=== PATIENT | male | born 1945 | race Two or more races ===

== ENCOUNTER 2023-09-23 12:17 | Inpatient (IN) | payer MEDICARE, OTHER ==
[~2023-09-23] VITALS: Ht 182.9 cm; Wt 82.6 kg
[~2023-09-23 12:17] MED LIST: CEPH500C PO; METH4PAK PO
[2023-09-23] MEDS ORDERED: SODIUM CHLORIDE 0.9% 500 ML IVB ONE (12:30)
[2023-09-23 13:14] LABS: Basophils # (auto) 0 10 ^3/uL (0-0.2); Basophils % (auto) 0.4 % (0.0-2.0); Eosinophils # (auto) 0 10 ^3/uL (0-0.8); Eosinophils % (auto) 0.1 % (0.0-7.0); Hemoglobin 12.6 g/dL (13.5-17.5); Lymphocytes # (auto) 0.8 10 ^3/uL (0.4-5.4); Mean Corpuscular Hemoglobin 34.3 pg (28.0-32.0); Mean Corpuscular Hgb Conc. 32.4 g/dL (32.0-36.0); Monocytes # (auto) 0.2 10 ^3/uL (0-1.3); Monocytes % (auto) 2.4 % (0.0-12.0); Neutrophils # (auto) 6.5 10 ^3/uL (1.6-8.6); Neutrophils % (auto) 86.1 % (37.0-80.0); Red Blood Cells 3.68 10^6/uL (4.5-5.90); Red Cell Distribution Width 15.4 % (11.8-14.3); White Blood Cell 7.6 10^3/uL (4.4-10.8)
[2023-09-23 13:28] LABS: Alanine Aminotransferase 44 U/L (7-40); Albumin 3.3 g/dL (3.2-4.8); Alkaline Phosphatase 84 U/L (46-116); Aspartate Aminotransferase 45 U/L (13-40); BUN/Creatinine Ratio 8.5 (10.0-20.0); Blood Alcohol < 3.0 mg/dL (<10); Blood Urea Nitrogen 26 mg/dL (9-23); Calcium 8.6 mg/dL (8.7-10.4); Chloride 112 mmol/L (98-107); Glucose 97 mg/dL (74-106); Magnesium 2.4 mg/dL (1.6-2.6); Potassium 4.9 mmol/L (3.5-5.1); Sodium 138 mmol/L (136-145)
[2023-09-23 13:29] LABS: Bilirubin, Total < 0.2 mg/dL (0.2-1.0); Total Protein 6.1 g/dL (5.7-8.2)
[2023-09-23 13:39] LABS: Carbon Dioxide < 10 mmol/L (20-30)
[2023-09-23 14:18] LABS: Urine Bacteria NONE SEEN /hpf (None Seen); Urine Blood 1+ /uL (Negative); Urine Clarity Clear (Clear); Urine Color Yellow (Yellow); Urine Hyaline Cast FEW /lpf (0 - 2); Urine Protein, UAD 1+ (Negative); Urine Specific Gravity 1.017 (1.001-1.035); Urine Urobilinogen Normal (Negative); Urine WBC 2 /hpf (0 - 3)
[2023-09-23 14:27] LABS: Base Excess -12.3 mmol/L (-2.0-2.0)
[2023-09-23] MEDS ORDERED: NITROGLYCERIN 0.4 MG SL TAB SL PRN (16:00)
[2023-09-23] MEDS ORDERED: MORPHINE SULFATE INJ 2 MG/ml SYRG IV PRN (16:00)
[2023-09-23] MEDS ORDERED: CEFEPIME 1GM/ 50ML 50 ML IV ONE (16:15)
[2023-09-23] MEDS ORDERED: SODIUM BICARBONATE 50ML VIAL 50 ML in D5W 5% 1,000 ML IV ONE (16:15)
[2023-09-23] MEDS ORDERED: VANCOMYCIN PER PHARMACY 0 MG IV SCH (16:15)
[2023-09-23] MEDS ORDERED: THIAMINE 100mg/ml INJ (200mg/2ml VIAL) IM ONE (16:30)
[2023-09-23] MEDS ORDERED: LACTATED RINGER'S 1,000 ML IV SCH (16:30)
[2023-09-23 17:00] LABS: Partial Thromboplastin Time 27.5 SEC (24.5-34.5); Prothrombin Time 10.5 sec (9.3-11.8)
[2023-09-23 17:11] LABS: % Iron Saturation 26.1 % (20-55)
[2023-09-23] MEDS ORDERED: VANCOMYCIN 1GM/200ML 200 ML IV ONE (17:15)
[2023-09-23 17:40] LABS: Folate (Folic Acid) 11.35 ng/mL (>5.38)
[2023-09-23 17:41] LABS: Ferritin 375.9 ng/mL (22-322); Thyroid Stimulating Hormone 1.49 uIU/mL (0.358-3.74)
[2023-09-23 17:57] LABS: Base Excess -12.7 mmol/L (-2.0-2.0)
[2023-09-23 18:16] LABS: Creatinine, Urine 132.73 mg/dL (30.0-125.0)
[2023-09-23] MEDS ORDERED: PANTOPRAZOLE 40 MG TAB PO ONE (18:45)
[2023-09-23] MEDS ORDERED: ACETAMINOPHEN 500 MG TAB PO PRN (18:45)
[2023-09-23] MEDS ORDERED: traMADol HCL 50 MG TAB PO PRN (18:45)
[2023-09-23 18:50] LABS: Rapid Influenza A Negative (Negative)
[2023-09-23 18:54] LABS: COVID19 ANTIGEN SOFIA FIA NEGATIVE (NEGATIVE)
[2023-09-23 18:57] LABS: Rapid Influenza B Positive (Negative)
[2023-09-23 19:30] VITALS: PULSE 89; RESP 20; O2SAT 99
[2023-09-23] MEDS ORDERED: OSELTAMIVIR 30 MG CAP PO ONE (19:30)
[2023-09-23] MEDS ORDERED: TETANUS IMMUNE GLOBULIN 250 UNIT/ML SYRG IM ONE (19:30)
[2023-09-23] MEDS ORDERED: TETANUS-DIPTH-ACEL PERTUSSIS 0.5ML SYR Tdap IM ONE (19:30)
[2023-09-23 20:21] LABS: Eosinophils # (auto) 0 10 ^3/uL (0-0.8); Red Cell Distribution Width 15.6 % (11.8-14.3)
[2023-09-23 20:23] LABS: Basophils # (auto) 0 10 ^3/uL (0-0.2); Basophils % (auto) 0.4 % (0.0-2.0); Hematocrit 36.5 % (41.0-53.0); Hemoglobin 11.4 g/dL (13.5-17.5); Lymphocytes % (auto) 11.7 % (10.0-50.0); Mean Corpuscular Hemoglobin 33.8 pg (28.0-32.0); Mean Corpuscular Hgb Conc. 31.2 g/dL (32.0-36.0); Mean Corpuscular Volume 108.2 fL (80.0-100.0); Monocytes # (auto) 0.2 10 ^3/uL (0-1.3); Monocytes % (auto) 2.9 % (0.0-12.0); Nucleated Red Blood Cells % 0.2 %; Red Blood Cells 3.37 10^6/uL (4.5-5.90); White Blood Cell 8.2 10^3/uL (4.4-10.8)
[2023-09-23 20:28] LABS: Urine Bacteria FEW /hpf (None Seen)
[2023-09-23] MEDS ORDERED: SILVER SULFADIAZINE 1 % TOPICAL CREAM 50GM TOP SCH (22:00)
[2023-09-24 03:30] VITALS: PULSE 92; RESP 18; O2SAT 98
[2023-09-24] MEDS ORDERED: CEFEPIME 1GM/ 50ML 50 ML IV SCH (06:00)
[2023-09-24 07:54] LABS: Basophils # (auto) 0 10 ^3/uL (0-0.2); Basophils % (auto) 0.1 % (0.0-2.0); Eosinophils # (auto) 0.1 10 ^3/uL (0-0.8); Eosinophils % (auto) 0.6 % (0.0-7.0); Hematocrit 32.1 % (41.0-53.0); Hemoglobin 10.8 g/dL (13.5-17.5); Lymphocytes # (auto) 1.3 10 ^3/uL (0.4-5.4); Lymphocytes % (auto) 13.8 % (10.0-50.0); Mean Corpuscular Hgb Conc. 33.6 g/dL (32.0-36.0); Mean Corpuscular Volume 101.2 fL (80.0-100.0); Monocytes # (auto) 0.7 10 ^3/uL (0-1.3); Monocytes % (auto) 7.8 % (0.0-12.0); Neutrophils # (auto) 7.2 10 ^3/uL (1.6-8.6); Neutrophils % (auto) 77.7 % (37.0-80.0); Nucleated Red Blood Cells % 0.1 %; Red Blood Cells 3.17 10^6/uL (4.5-5.90); Red Cell Distribution Width 14.3 % (11.8-14.3); White Blood Cell 9.2 10^3/uL (4.4-10.8)
[2023-09-24 08:15] LABS: Alanine Aminotransferase 36 U/L (7-40); Albumin 2.8 g/dL (3.2-4.8); Alkaline Phosphatase 71 U/L (46-116); Anion Gap 18 (5-15); Aspartate Aminotransferase 36 U/L (13-40); BUN/Creatinine Ratio 11.3 (10.0-20.0); Blood Urea Nitrogen 35 mg/dL (9-23); Calcium 8.2 mg/dL (8.5-10.1); Carbon Dioxide 11 mmol/L (20-30); Chloride 117 mmol/L (98-107); Glucose 65 mg/dL (74-106); Potassium 3.9 mmol/L (3.5-5.1)
[2023-09-24 08:16] LABS: Bilirubin, Total 0.2 mg/dL (0.2-1.0)
[2023-09-24 08:18] LABS: Sodium 146 mmol/L (136-145)
[2023-09-24 09:11] LABS: Magnesium 2.1 mg/dL (1.6-2.6)
[2023-09-24] MEDS ORDERED: LACTATED RINGER'S 1,000 ML IV SCH (09:45)
[2023-09-24 09:53] LABS: Base Excess -10.2 mmol/L (-2.0-2.0)
[2023-09-24] MEDS: ENOXAPARIN SOD 40 MG/0.4 ML SYRINGE SC SCH (10:00)
[2023-09-24] MEDS ORDERED: PANTOPRAZOLE 40 MG/10 ML VIAL INJ IV SCH (10:00)
[2023-09-24] MEDS: PANTOPRAZOLE 40 MG TAB PO SCH (10:00)
[2023-09-24] MEDS: THIAMINE 100mg/ml INJ (200mg/2ml VIAL) IV SCH (10:00)
[2023-09-24] MEDS: OSELTAMIVIR 30 MG CAP PO SCH (10:00)
[2023-09-24] MEDS ORDERED: VANCOMYCIN 500 MG in D5W 5% 100 ML IV ONE (12:00)
[2023-09-24] MEDS: CALCIUM ACETATE 667 MG CAP PO SCH (14:14)
[2023-09-24] MEDS ORDERED: SODIUM BICARBONATE 50ML VIAL 75 ML in D5W 5% 1,000 ML IV SCH (15:15)
[2023-09-24] MEDS: LACTATED RINGER'S 1,000 ML IV SCH (16:30)
[2023-09-24 19:40] VITALS: PULSE 89; RESP 19; O2SAT 98
[2023-09-24] MEDS: CEFEPIME 1GM/ 50ML 50 ML IV SCH (22:11)
[2023-09-25] MEDS: LACTATED RINGER'S 1,000 ML IV SCH (02:56)
[2023-09-25 04:18] LABS: Basophils # (auto) 0 10 ^3/uL (0-0.2); Eosinophils # (auto) 0.6 10 ^3/uL (0-0.8); Hematocrit 32.6 % (41.0-53.0)
[2023-09-25 04:21] LABS: Basophils % (auto) 0.2 % (0.0-2.0); Eosinophils % (auto) 6.1 % (0.0-7.0); Hemoglobin 10.9 g/dL (13.5-17.5); Lymphocytes % (auto) 10.4 % (10.0-50.0); Mean Corpuscular Hemoglobin 34.2 pg (28.0-32.0); Mean Corpuscular Hgb Conc. 33.5 g/dL (32.0-36.0); Monocytes # (auto) 0.7 10 ^3/uL (0-1.3); Monocytes % (auto) 6.6 % (0.0-12.0); Neutrophils # (auto) 7.8 10 ^3/uL (1.6-8.6); Neutrophils % (auto) 76.7 % (37.0-80.0); Nucleated Red Blood Cells % 0.2 %; Red Cell Distribution Width 14.5 % (11.8-14.3); White Blood Cell 10.1 10^3/uL (4.4-10.8)
[2023-09-25 04:40] LABS: Alanine Aminotransferase 39 U/L (7-40); Albumin 2.4 g/dL (3.2-4.8); Alkaline Phosphatase 70 U/L (46-116); Anion Gap 16 (5-15); Aspartate Aminotransferase 61 U/L (13-40); BUN/Creatinine Ratio 16.9 (10.0-20.0); Calcium 7.5 mg/dL (8.7-10.4); Carbon Dioxide 14 mmol/L (20-30); Chloride 120 mmol/L (98-107); Magnesium 1.8 mg/dL (1.6-2.6); Phosphorus 4.5 mg/dL (2.4-5.1); Potassium 3.4 mmol/L (3.5-5.1); Sodium 150 mmol/L (136-145)
[2023-09-25 04:41] LABS: Bilirubin, Total 0.2 mg/dL (0.2-1.0); Total Protein 4.3 g/dL (5.7-8.2)
[2023-09-25 04:42] LABS: Blood Urea Nitrogen 48 mg/dL (9-23)
[2023-09-25 04:44] LABS: Glucose 35 mg/dL (74-106)
[2023-09-25] MEDS ORDERED: DEXTROSE 50% SYRINGE 50 ML IV ONE (04:46)
[2023-09-25] MEDS ORDERED: DEXTROSE (50%) 50ML SYRG IV ONE (05:00)
[2023-09-25] MEDS ORDERED: D5W/SOD CHL 0.45% 1,000 ML IV ONE ×2 (05:15→11:15)
[2023-09-25] MEDS: MORPHINE SULFATE INJ 2 MG/ml SYRG IV PRN (05:25)
[2023-09-25] MEDS: ACCU-CHEK COMFORT CURVE STRIP VI SCH ×3 (06:07→18:05)
[2023-09-25] MEDS ORDERED: POTASSIUM EFFERVESENT TAB 25 MEQ PO ONE (07:45)
[2023-09-25] MEDS: CALCIUM ACETATE 667 MG CAP PO SCH ×3 (08:00→18:00)
[2023-09-25] MEDS ORDERED: POTASSIUM CHL 20MEQ/100ML 100 ML IV ONE (08:15)
[2023-09-25] MEDS: THIAMINE 100mg/ml INJ (200mg/2ml VIAL) IV SCH (09:57)
[2023-09-25] MEDS: CEFEPIME 1GM/ 50ML 50 ML IV SCH (09:57)
[2023-09-25] MEDS: ENOXAPARIN SOD 40 MG/0.4 ML SYRINGE SC SCH (09:57)
[2023-09-25] MEDS: OSELTAMIVIR 30 MG CAP PO SCH (10:00)
[2023-09-25] MEDS: PANTOPRAZOLE 40 MG TAB PO SCH (10:00)
[2023-09-25] MEDS ORDERED: VANCOMYCIN 750mg/250ml 250 ML IV ONE (14:00)
[2023-09-25] MEDS: ENSURE CLEAR Apple 8oz Carton PO SCH ×2 (18:00→21:45)
[2023-09-25 18:37] LABS: Chloride 120 mmol/L (98-107); Potassium 3.3 mmol/L (3.5-5.1); Sodium 148 mmol/L (136-145)
[2023-09-25 18:38] LABS: Anion Gap 12 (5-15); Carbon Dioxide 16 mmol/L (20-30)
[2023-09-25 18:39] LABS: Calcium 7.6 mg/dL (8.7-10.4)
[2023-09-25 18:44] LABS: BUN/Creatinine Ratio 10.5 (10.0-20.0); Glucose 78 mg/dL (74-106)
[2023-09-25 18:46] LABS: Blood Urea Nitrogen 26 mg/dL (9-23)
[2023-09-25 19:20] VITALS: PULSE 82; RESP 16; O2SAT 94
[2023-09-26] MEDS: ACCU-CHEK COMFORT CURVE STRIP VI SCH ×6 (00:23→20:12)
[2023-09-26] MEDS ORDERED: D5W/SOD CHL 0.45% 1,000 ML IV ONE (00:30)
[2023-09-26] MEDS ORDERED: diphenhdrAMINE HCL 50 MG/1 ML VL IV ONE (00:30)
[2023-09-26] MEDS: MORPHINE SULFATE INJ 2 MG/ml SYRG IV PRN (01:05)
[2023-09-26] MEDS ORDERED: POTASSIUM EFFERVESENT TAB 25 MEQ GT ONE (04:45)
[2023-09-26] MEDS ORDERED: POTASSIUM CHLORIDE 40 MEQ in SOD CHL 0.45% 1,000 ML IV SCH (06:00)
[2023-09-26 06:26] LABS: Basophils # (auto) 0 10 ^3/uL (0-0.2); Basophils % (auto) 0.1 % (0.0-2.0); Eosinophils # (auto) 1.7 10 ^3/uL (0-0.8); Eosinophils % (auto) 13.4 % (0.0-7.0); Hematocrit 32.6 % (41.0-53.0); Hemoglobin 10.7 g/dL (13.5-17.5); Lymphocytes # (auto) 1.4 10 ^3/uL (0.4-5.4); Lymphocytes % (auto) 11.1 % (10.0-50.0); Mean Corpuscular Hemoglobin 33.2 pg (28.0-32.0); Mean Corpuscular Volume 100.8 fL (80.0-100.0); Monocytes # (auto) 0.8 10 ^3/uL (0-1.3); Monocytes % (auto) 6.3 % (0.0-12.0); Neutrophils # (auto) 8.6 10 ^3/uL (1.6-8.6); Neutrophils % (auto) 69.1 % (37.0-80.0); Nucleated Red Blood Cells % 0.1 %; Red Blood Cells 3.23 10^6/uL (4.5-5.90); Red Cell Distribution Width 14.4 % (11.8-14.3); White Blood Cell 12.5 10^3/uL (4.4-10.8)
[2023-09-26 06:46] LABS: Alanine Aminotransferase 35 U/L (7-40); Albumin 2.5 g/dL (3.2-4.8); Alkaline Phosphatase 68 U/L (46-116); Anion Gap 12 (5-15); Aspartate Aminotransferase 48 U/L (13-40); BUN/Creatinine Ratio 13.9 (10.0-20.0); Blood Urea Nitrogen 32 mg/dL (9-23); Calcium 7.5 mg/dL (8.7-10.4); Carbon Dioxide 18 mmol/L (20-30); Chloride 120 mmol/L (98-107); Creatine Kinase IFCC 524 U/L (46-171); Glucose 73 mg/dL (74-106); Magnesium 1.6 mg/dL (1.6-2.6); Phosphorus 3.4 mg/dL (2.4-5.1); Potassium 3.2 mmol/L (3.5-5.1); Sodium 150 mmol/L (136-145)
[2023-09-26 06:47] LABS: Bilirubin, Total 0.3 mg/dL (0.2-1.0); Total Protein 4.7 g/dL (5.7-8.2)
[2023-09-26 07:23] LABS: CRP High Sensitivity 17.22 mg/dL (<1.0)
[2023-09-26] MEDS ORDERED: D5W 5% 1,000 ML IV SCH ×2 (07:45→11:30)
[2023-09-26 08:00] VITALS: PULSE 83; RESP 19; O2SAT 97
[2023-09-26] MEDS ORDERED: VANCOMYCIN 1GM/200ML 200 ML IV SCH (09:00)
[2023-09-26] MEDS: CALCIUM ACETATE 667 MG CAP PO SCH ×3 (09:07→19:43)
[2023-09-26] MEDS: ENSURE CLEAR Apple 8oz Carton PO SCH ×4 (09:07→22:00)
[2023-09-26] MEDS: POTASSIUM CHLORIDE 40 MEQ in D5W 5% 1,000 ML IV SCH (09:22)
[2023-09-26] MEDS: MAGNESIUM SULFATE 1GM/100ML 100 ML IV SCH ×2 (09:23→10:27)
[2023-09-26 09:30] LABS: Hepatitis B Surface Antigen Negative (Negative)
[2023-09-26 09:50] LABS: Hepatitis A Ab IgM Negative
[2023-09-26 09:51] LABS: Hepatitis B Core IgM Negative; Hepatitis C Antibody Negative (Negative)
[2023-09-26] MEDS ORDERED: CEFEPIME 1GM/ 50ML 50 ML IV SCH (10:00)
[2023-09-26] MEDS ORDERED: MEROPENEM 1GM IVPB 100 ML IV SCH (10:00)
[2023-09-26] MEDS ORDERED: diphenhdrAMINE HCL 50 MG/1 ML VL IV PRN (10:00)
[2023-09-26] MEDS: ENOXAPARIN SOD 30 MG/0.3 ML SYRINGE SC SCH (11:08)
[2023-09-26] MEDS: OSELTAMIVIR 30 MG CAP PO SCH (11:09)
[2023-09-26] MEDS: PANTOPRAZOLE 40 MG/10 ML VIAL INJ IV SCH (11:09)
[2023-09-26] MEDS ORDERED: DEXTROSE (50%) 50ML SYRG IV PRN (11:30)
[2023-09-26 12:46] LABS: Calcium 7.3 mg/dL (8.7-10.4); Chloride 119 mmol/L (98-107); Potassium 3.4 mmol/L (3.5-5.1)
[2023-09-26 12:47] LABS: Anion Gap 9 (5-15); Carbon Dioxide 17 mmol/L (20-30)
[2023-09-26] MEDS: Juven Fruit Punch Powder PACKET 28.8gm PO SCH (12:50)
[2023-09-26 12:52] LABS: BUN/Creatinine Ratio 13.5 (10.0-20.0); Blood Urea Nitrogen 30 mg/dL (9-23); Glucose 104 mg/dL (74-106)
[2023-09-26 12:53] LABS: Magnesium 2.1 mg/dL (1.6-2.6)
[2023-09-26] MEDS: THIAMINE 100mg/ml INJ (200mg/2ml VIAL) IV SCH (13:04)
[2023-09-26 13:05] LABS: Sodium 145 mmol/L (136-145)
[2023-09-26] MEDS: InsuLIN REG 1unit/0.01ml Soln (100units/ml) SC SCH ×3 (13:24→20:15)
[2023-09-26] MEDS ORDERED: CLINDAMYCIN 900MG IV 50 ML IV STA (14:00)
[2023-09-26] MEDS: CLINDAMYCIN 900MG IV 50 ML IV SCH ×2 (14:40→22:09)
[2023-09-26] MEDS: NAFCILLIN SOD 2GM 2 GM in SODIUM CHL 0.9% 100 ML IV SCH ×3 (16:59→22:19)
[2023-09-26] MEDS: LACTATED RINGER'S 1,000 ML IV SCH (17:12)
[2023-09-26] MEDS: DAKINS QUARTER STR 0.125% (NaHypochlorite) 473 ML TOPICAL SOL TOP SCH (18:48)
[2023-09-26 20:24] LABS: Chloride 117 mmol/L (98-107); Potassium 3.5 mmol/L (3.5-5.1); Sodium 144 mmol/L (136-145)
[2023-09-26 20:25] LABS: Anion Gap 12 (5-15); Calcium 7.3 mg/dL (8.7-10.4); Carbon Dioxide 15 mmol/L (20-30)
[2023-09-26 20:30] LABS: BUN/Creatinine Ratio 16.1 (10.0-20.0); Blood Urea Nitrogen 34 mg/dL (9-23); Glucose 171 mg/dL (74-106); Magnesium 1.7 mg/dL (1.6-2.6)
[2023-09-26 23:00] VITALS: PULSE 82; RESP 17; O2SAT 96
[2023-09-27] MEDS: ACCU-CHEK COMFORT CURVE STRIP VI SCH ×6 (00:17→20:08)
[2023-09-27] MEDS: InsuLIN REG 1unit/0.01ml Soln (100units/ml) SC SCH ×6 (00:17→20:00)
[2023-09-27] MEDS: NAFCILLIN SOD 2GM 2 GM in SODIUM CHL 0.9% 100 ML IV SCH ×6 (01:29→23:24)
[2023-09-27] MEDS ORDERED: LACTATED RINGER'S 1,000 ML IV ONE (03:15)
[2023-09-27] MEDS ORDERED: MIDODRINE HCL 10 MG TAB PO PRN (03:15)
[2023-09-27] MEDS: POTASSIUM CHLORIDE 40 MEQ in D5W 5% 1,000 ML IV SCH (04:16)
[2023-09-27 04:44] LABS: Mean Corpuscular Volume 102.1 fL (80.0-100.0); White Blood Cell 11.6 10^3/uL (4.4-10.8)
[2023-09-27 04:46] LABS: Hematocrit 30.6 % (41.0-53.0); Hemoglobin 10.1 g/dL (13.5-17.5); Mean Corpuscular Hemoglobin 33.8 pg (28.0-32.0); Mean Corpuscular Hgb Conc. 33.1 g/dL (32.0-36.0); Red Cell Distribution Width 14.3 % (11.8-14.3)
[2023-09-27 04:49] LABS: Band Neutrophils % (manual) 0; Basophils % (manual) 0 (0.0-2.0); Blast Cells 0; Metamyelocytes % 0; Myelocytes % 0; Promyelocytes % 0; Reactive Lymphocytes 0
[2023-09-27 04:58] LABS: Alanine Aminotransferase 32 U/L (7-40); Albumin 2.3 g/dL (3.2-4.8); Alkaline Phosphatase 67 U/L (46-116); Anion Gap 10 (5-15); Aspartate Aminotransferase 35 U/L (13-40); BUN/Creatinine Ratio 12.7 (10.0-20.0); Bilirubin, Total 0.6 mg/dL (0.2-1.0); Blood Urea Nitrogen 25 mg/dL (9-23); Calcium 7.3 mg/dL (8.7-10.4); Carbon Dioxide 15 mmol/L (20-30); Chloride 117 mmol/L (98-107); Glucose 77 mg/dL (74-106); Magnesium 1.6 mg/dL (1.6-2.6); Potassium 3.5 mmol/L (3.5-5.1); Sodium 142 mmol/L (136-145)
[2023-09-27 04:59] LABS: Total Protein 4.4 g/dL (5.7-8.2)
[2023-09-27] MEDS: CLINDAMYCIN 900MG IV 50 ML IV SCH ×3 (05:05→22:06)
[2023-09-27] MEDS: LACTATED RINGER'S 1,000 ML IV SCH (05:05)
[2023-09-27] MEDS: ENSURE CLEAR Apple 8oz Carton PO SCH ×4 (05:05→22:15)
[2023-09-27] MEDS: NOREPINEPHRINE 8 MG/250ML KIT 250 ML IV SCH (06:27)
[2023-09-27 07:45] VITALS: PULSE 80; RESP 16; O2SAT 98
[2023-09-27] MEDS ORDERED: SOD CHL 0.9%/ KCL 40MEQ 1,000 ML IV SCH (07:45)
[2023-09-27] MEDS: CALCIUM ACETATE 667 MG CAP PO SCH ×3 (08:05→20:00)
[2023-09-27] MEDS: MAGNESIUM SULFATE 1GM/100ML 100 ML IV SCH ×2 (08:06→09:36)
[2023-09-27 08:09] LABS: Eosinophils % (manual) 28 (0-7); Lymphocytes % (manual) 16 (10.0-50.0); Monocytes % (manual) 3 (0-12); Toxic Granulation Slight
[2023-09-27 08:10] LABS: Platelet Estimate Decreased
[2023-09-27] MEDS ORDERED: levoFLOXacin 250MG 50 ML IV SCH (10:00)
[2023-09-27] MEDS: Juven Fruit Punch Powder PACKET 28.8gm PO SCH (10:00)
[2023-09-27] MEDS ORDERED: SODIUM BICARBONATE 50ML VIAL 150 ML in D5W 5% 1,000 ML IV ONE (10:45)
[2023-09-27] MEDS: THIAMINE 100mg/ml INJ (200mg/2ml VIAL) IV SCH (10:58)
[2023-09-27] MEDS: PANTOPRAZOLE 40 MG/10 ML VIAL INJ IV SCH (10:59)
[2023-09-27] MEDS: OSELTAMIVIR 30 MG CAP PO SCH (10:59)
[2023-09-27] MEDS: ENOXAPARIN SOD 30 MG/0.3 ML SYRINGE SC SCH (10:59)
[2023-09-27 14:31] LABS: Chloride 115 mmol/L (98-107); Potassium 3.6 mmol/L (3.5-5.1); Sodium 141 mmol/L (136-145)
[2023-09-27 14:32] LABS: Anion Gap 8 (5-15); Calcium 7.6 mg/dL (8.7-10.4); Carbon Dioxide 18 mmol/L (20-30)
[2023-09-27 14:37] LABS: BUN/Creatinine Ratio 18.6 (10.0-20.0); Glucose 113 mg/dL (74-106)
[2023-09-27 14:38] LABS: Magnesium 1.9 mg/dL (1.6-2.6)
[2023-09-27 14:53] LABS: Blood Urea Nitrogen 35 mg/dL (9-23)
[2023-09-27 19:45] VITALS: PULSE 67; RESP 15; O2SAT 98
[2023-09-27 20:15] VITALS: PULSE 66; RESP 16; O2SAT 98
[2023-09-27] MEDS ORDERED: VANCOMYCIN PER PHARMACY 0 MG IV SCH (23:58)
[2023-09-28] VITALS (8 sets, daily range): BP systolic 100–118; BP diastolic 58–64; PULSE 66–74; RESP 11–16; TEMP 95.9–96.8; O2SAT 95–99
[2023-09-28] MEDS ORDERED: VANCOMYCIN 1GM/200ML 200 ML IV ONE (01:00)
[2023-09-28] MEDS ORDERED: LACTATED RINGER'S 1,000 ML IV SCH ×2 (05:45→07:45)
[2023-09-28] MEDS: ENSURE CLEAR Apple 8oz Carton PO SCH ×4 (06:00→21:52)
[2023-09-28 06:23] LABS: Hematocrit 31.8 % (41.0-53.0); Hemoglobin 10.5 g/dL (13.5-17.5); Mean Corpuscular Hemoglobin 33.3 pg (28.0-32.0); Mean Corpuscular Hgb Conc. 33.1 g/dL (32.0-36.0); Mean Corpuscular Volume 100.5 fL (80.0-100.0); Red Blood Cells 3.17 10^6/uL (4.5-5.90); Red Cell Distribution Width 14.4 % (11.8-14.3); White Blood Cell 11.1 10^3/uL (4.4-10.8)
[2023-09-28] MEDS: NOREPINEPHRINE 8 MG/250ML KIT 250 ML IV SCH (06:30)
[2023-09-28 06:31] LABS: Band Neutrophils % (manual) 0; Basophils % (manual) 0 (0.0-2.0); Blast Cells 0; Metamyelocytes % 0; Myelocytes % 0; Promyelocytes % 0; Reactive Lymphocytes 0
[2023-09-28 06:38] LABS: Alanine Aminotransferase 31 U/L (7-40); Alkaline Phosphatase 73 U/L (46-116); Anion Gap 9 (5-15); Aspartate Aminotransferase 25 U/L (13-40); BUN/Creatinine Ratio 17.7 (10.0-20.0); Blood Urea Nitrogen 32 mg/dL (9-23); Calcium 7.6 mg/dL (8.7-10.4); Carbon Dioxide 20 mmol/L (20-30); Chloride 113 mmol/L (98-107); Glucose 91 mg/dL (74-106); Magnesium 1.7 mg/dL (1.6-2.6); Potassium 3.2 mmol/L (3.5-5.1); Sodium 142 mmol/L (136-145)
[2023-09-28 06:39] LABS: Albumin 2.4 g/dL (3.2-4.8); Bilirubin, Total 0.4 mg/dL (0.2-1.0); Total Protein 4.5 g/dL (5.7-8.2)
[2023-09-28] MEDS ORDERED: POTASSIUM CHL 20 Meq TABLET PO ONE (07:45)
[2023-09-28] MEDS ORDERED: MAGNESIUM OXIDE 400 MG TAB PO ONE (07:45)
[2023-09-28 08:10] LABS: Eosinophils % (manual) 16 (0-7); Lymphocytes % (manual) 12 (10.0-50.0); Monocytes % (manual) 5 (0-12)
[2023-09-28 08:11] LABS: Macrocytosis Slight; Platelet Estimate Decreased
[2023-09-28] MEDS ORDERED: CEFTRIAXONE SODIUM 2 GM in D5W 5% 100 ML IV SCH (09:00)
[2023-09-28] MEDS: CALCIUM ACETATE 667 MG CAP PO SCH ×3 (09:05→18:00)
[2023-09-28] MEDS: THIAMINE 100mg/ml INJ (200mg/2ml VIAL) IV SCH (09:05)
[2023-09-28] MEDS: PANTOPRAZOLE 40 MG/10 ML VIAL INJ IV SCH (09:06)
[2023-09-28] MEDS: ENOXAPARIN SOD 40 MG/0.4 ML SYRINGE SC SCH (10:00)
[2023-09-28] MEDS: OSELTAMIVIR 30 MG CAP PO SCH (16:23)
[2023-09-28] MEDS: DAKINS QUARTER STR 0.125% (NaHypochlorite) 473 ML TOPICAL SOL TOP SCH (16:23)
[2023-09-28] MEDS: Juven Fruit Punch Powder PACKET 28.8gm PO SCH (16:24)
[2023-09-28] MEDS: AMPICILLIN & SULBACTAM SODIUM 3 GM in SODIUM CHL 0.9% 100 ML IV SCH ×2 (19:11→22:58)
[2023-09-28 20:13] LABS: Rapid Influenza A Positive (Negative); Rapid Influenza B Positive (Negative)
[2023-09-29] VITALS (32 sets, daily range): BP systolic 106–127; BP diastolic 47–77; PULSE 68–103; RESP 11–25; TEMP 97.3–99; O2SAT 96–99
[2023-09-29] MEDS: AMPICILLIN & SULBACTAM SODIUM 3 GM in SODIUM CHL 0.9% 100 ML IV SCH ×2 (04:51→11:03)
[2023-09-29] MEDS: ENSURE CLEAR Apple 8oz Carton PO SCH ×2 (04:53→12:59)
[2023-09-29 04:55] LABS: Hematocrit 31.4 % (41.0-53.0); Hemoglobin 10.6 g/dL (13.5-17.5); Mean Corpuscular Hemoglobin 33.7 pg (28.0-32.0); Mean Corpuscular Hgb Conc. 33.7 g/dL (32.0-36.0); Mean Corpuscular Volume 99.8 fL (80.0-100.0); Red Blood Cells 3.14 10^6/uL (4.5-5.90); Red Cell Distribution Width 14.3 % (11.8-14.3); White Blood Cell 11.9 10^3/uL (4.4-10.8)
[2023-09-29 05:09] LABS: Chloride 115 mmol/L (98-107); Potassium 3.8 mmol/L (3.5-5.1); Sodium 144 mmol/L (136-145)
[2023-09-29 05:10] LABS: Anion Gap 7 (5-15); Calcium 7.9 mg/dL (8.7-10.4); Carbon Dioxide 22 mmol/L (20-30)
[2023-09-29 05:15] LABS: BUN/Creatinine Ratio 15.5 (10.0-20.0); Blood Urea Nitrogen 25 mg/dL (9-23); Glucose 80 mg/dL (74-106); Magnesium 1.7 mg/dL (1.6-2.6)
[2023-09-29 05:20] LABS: Basophils % (manual) 0 (0.0-2.0); Blast Cells 0; Metamyelocytes % 0; Myelocytes % 0; Promyelocytes % 0; Reactive Lymphocytes 0
[2023-09-29] MEDS: NOREPINEPHRINE 8 MG/250ML KIT 250 ML IV SCH (06:23)
[2023-09-29 06:41] LABS: Band Neutrophils % (manual) 8; Lymphocytes % (manual) 12 (10.0-50.0); Monocytes % (manual) 5 (0-12)
[2023-09-29 06:42] LABS: Eosinophils % (manual) 15 (0-7); Platelet Estimate Decreased
[2023-09-29] MEDS: MAGNESIUM OXIDE 400 MG TAB PO ONE ×2 (07:30→08:28)
[2023-09-29] MEDS: OSELTAMIVIR 75 MG CAP PO ONE ×2 (07:30→08:28)
[2023-09-29] MEDS: POTASSIUM CHL 20 Meq TABLET PO ONE ×2 (07:30→08:29)
[2023-09-29] MEDS: CALCIUM ACETATE 667 MG CAP PO SCH ×3 (08:00→11:47)
[2023-09-29] MEDS: Juven Fruit Punch Powder PACKET 28.8gm PO SCH (08:29)
[2023-09-29] MEDS: OSELTAMIVIR 30 MG CAP PO SCH ×2 (08:29→08:38)
[2023-09-29] MEDS: ENOXAPARIN SOD 40 MG/0.4 ML SYRINGE SC SCH ×2 (08:29→08:39)
[2023-09-29] MEDS ORDERED: cefTRIAXone 1GM/50ML D5W 50 ML IV SCH (09:00)
[2023-09-29] MEDS ORDERED: THIAMINE 100mg/ml INJ (200mg/2ml VIAL) IV SCH (10:00)
[2023-09-29] MEDS ORDERED: LACTATED RINGER'S 1,000 ML IV ONE (15:00)
== END 2023-09-29 17:21 | DRG 871 ==
LOC: EDBD 12:17 → ER 12:17 → TELE 16:04 → DOU IN ICU 09-28 17:57
PROVIDERS: ADMIT Internal Medicine; ATTEND Internal Medicine
PROC: 05HA33Z Insertion of Infusion Device into Left Brachial Vein, Percutaneous Approach (ICD-10-PCS; 2023-09-24)
PROC: B54NZZA Ultrasonography of Left Upper Extremity Veins, Guidance (ICD-10-PCS; 2023-09-24)
PROC: 05HC33Z Insertion of Infusion Device into Left Basilic Vein, Percutaneous Approach (ICD-10-PCS; principal; 2023-09-29)
PROC: B54NZZA Ultrasonography of Left Upper Extremity Veins, Guidance (ICD-10-PCS; 2023-09-29)
DX: A40.9 Streptococcal sepsis, unspecified (principal); A48.3 Toxic shock syndrome; G93.41 Metabolic encephalopathy; R65.21 Severe sepsis with septic shock; E87.1 Hypo-osmolality and hyponatremia; E87.20 Acidosis, unspecified; N17.9 Acute kidney failure, unspecified; L03.115 Cellulitis of right lower limb; L03.116 Cellulitis of left lower limb; E87.0 Hyperosmolality and hypernatremia; E16.2 Hypoglycemia, unspecified; E86.0 Dehydration; E87.6 Hypokalemia; F10.10 Alcohol abuse, uncomplicated; L40.9 Psoriasis, unspecified; N18.9 Chronic kidney disease, unspecified; I87.2 Venous insufficiency (chronic) (peripheral); M10.9 Gout, unspecified; Z20.822 Contact with and (suspected) exposure to COVID-19; L08.9 Local infection of the skin and subcutaneous tissue, unspecified; L01.00 Impetigo, unspecified; D53.9 Nutritional anemia, unspecified; R68.0 Hypothermia, not associated with low environmental temperature; J10.1 Influenza due to other identified influenza virus with other respiratory manifestations; D69.6 Thrombocytopenia, unspecified; E83.42 Hypomagnesemia; Z87.440 Personal history of urinary (tract) infections; Z71.6 Tobacco abuse counseling
CPT/HCPCS: 36415; 36600; 70450; 71045; 76775; 80048; 80053; 80074; 80202; 80320; 81001; 81015; 82140; 82306; 82533; 82550; 82570; 82607; 82728; 82746; 82805; 82962; 83036; 83540; 83550; 83605; 83615; 83735; 83880; 83930; 83935; 83970; 84100; 84300; 84443; 84484; 84550; 85007; 85025; 85027; 85045; 85379; 85610; 85730; 86141; 86703; 87040; 87077; 87081; 87086; 87186; 87205; 87340; 87426; 87804; 90715; 92610; 93005; 93306; 93925; 93970; 96360; 97110; 97530; C9113; G0378; G9035; J0696; J1815; J2185; J3480; J3490; J7060

== ENCOUNTER 2023-10-03 08:38 | Inpatient (IN) | payer MEDICARE, OTHER ==
[~2023-10-03] VITALS: Ht 167.6 cm; Wt 77.2 kg
[2023-10-03] MEDS ORDERED: DEXTROSE (50%) 50ML SYRG IV ONE ×3 (09:00→10:30)
[2023-10-03 09:15] VITALS: PULSE 109; RESP 20; O2SAT 96
[2023-10-03 10:01] LABS: Hematocrit 35.7 % (41.0-53.0); Hemoglobin 11.4 g/dL (13.5-17.5); Mean Corpuscular Hemoglobin 33.3 pg (28.0-32.0); Mean Corpuscular Hgb Conc. 31.9 g/dL (32.0-36.0); Mean Corpuscular Volume 104.7 fL (80.0-100.0); Red Blood Cells 3.41 10^6/uL (4.5-5.90); Red Cell Distribution Width 15.2 % (11.8-14.3)
[2023-10-03 10:12] LABS: Basophils % (manual) 0 (0.0-2.0); Blast Cells 0; Metamyelocytes % 0; Myelocytes % 0; Promyelocytes % 0; Reactive Lymphocytes 0
[2023-10-03 10:28] LABS: INR 1.07 (0.9-1.15); Partial Thromboplastin Time 27.1 SEC (24.5-34.5); Prothrombin Time 11.4 sec (9.3-11.8)
[2023-10-03 10:30] LABS: Urine Bacteria FEW /hpf (None Seen); Urine Blood 2+ /uL (Negative); Urine Clarity Clear (Clear); Urine Color Yellow (Yellow); Urine Hyaline Cast FEW /lpf (0 - 2); Urine Protein, UAD 1+ (Negative); Urine Specific Gravity 1.016 (1.001-1.035); Urine Urobilinogen Normal (Negative); Urine WBC 14 /hpf (0 - 3); Urine pH 5.5 (5.0-8.0)
[2023-10-03] MEDS ORDERED: D5W/SOD CHLO 0.9% 1,000 ML IV ONE (10:30)
[2023-10-03 10:54] LABS: Band Neutrophils % (manual) 4; Lymphocytes % (manual) 12 (10.0-50.0); Monocytes % (manual) 5 (0-12)
[2023-10-03 10:55] LABS: Anisocytosis Slight; Eosinophils % (manual) 17 (0-7); Hypochromia Slight; Macrocytosis Slight
[2023-10-03 10:56] LABS: Platelet Estimate Decreased
[2023-10-03 11:10] LABS: Alanine Aminotransferase 49 U/L (7-40); Albumin 2.3 g/dL (3.2-4.8); Alkaline Phosphatase 73 U/L (46-116); Anion Gap 14 (5-15); Aspartate Aminotransferase 50 U/L (13-40); BUN/Creatinine Ratio 15.1 (10.0-20.0); Bilirubin, Total 0.2 mg/dL (0.2-1.0); Blood Urea Nitrogen 24 mg/dL (9-23); Calcium 7.8 mg/dL (8.7-10.4); Carbon Dioxide 16 mmol/L (20-30); Chloride 120 mmol/L (98-107); Glucose 112 mg/dL (74-106); Magnesium 1.6 mg/dL (1.6-2.6); Potassium 3.5 mmol/L (3.5-5.1); Total Protein 4.3 g/dL (5.7-8.2)
[2023-10-03 11:13] LABS: Sodium 150 mmol/L (136-145)
[2023-10-03] MEDS ORDERED: D5W/SOD CHLO 0.9% 1,000 ML IV SCH ×2 (11:30→13:45)
[2023-10-03] MEDS ORDERED: ACCU-CHEK COMFORT CURVE STRIP VI ONE (11:30)
[2023-10-03] MEDS ORDERED: PIPERACILLIN-TAZOB 3.375GM 100 ML IV ONE (12:15)
[2023-10-03] MEDS ORDERED: D5W 5% 1,000 ML IV ONE (13:45)
[2023-10-03] MEDS ORDERED: CEFEPIME 1GM/ 50ML 50 ML IV ONE (13:45)
[2023-10-03] MEDS ORDERED: NITROGLYCERIN 0.4 MG SL TAB SL PRN (13:45)
[2023-10-03] MEDS ORDERED: MORPHINE SULFATE INJ 2 MG/ml SYRG IV PRN (13:45)
[2023-10-03] MEDS ORDERED: VANCOMYCIN PER PHARMACY 0 MG IV SCH (13:45)
[2023-10-03] MEDS ORDERED: VANCOMYCIN 1GM/200ML 200 ML IV ONE (14:00)
[2023-10-03] MEDS ORDERED: ENOXAPARIN SOD 40 MG/0.4 ML SYRINGE SC ONE (14:00)
[2023-10-03 14:54] LABS: Chloride 121 mmol/L (98-107); Potassium 3.4 mmol/L (3.5-5.1); Sodium 150 mmol/L (136-145)
[2023-10-03 14:55] LABS: Anion Gap 12 (5-15); Calcium 7.7 mg/dL (8.7-10.4); Carbon Dioxide 17 mmol/L (20-30)
[2023-10-03 15:00] LABS: BUN/Creatinine Ratio 12.8 (10.0-20.0); Blood Urea Nitrogen 20 mg/dL (9-23); Glucose 113 mg/dL (74-106)
[2023-10-03] MEDS ORDERED: SODIUM CHLORIDE 0.9% 500 ML IV ONE (15:45)
[2023-10-03] MEDS ORDERED: LACTATED RINGER'S 1,000 ML IV ONE ×2 (16:15→18:00)
[2023-10-03] MEDS: POTASSIUM CHLORIDE 40 MEQ in D5W 5% 1,000 ML IV SCH (16:30)
[2023-10-03 16:41] LABS: Base Excess -6.4 mmol/L (-2.0-2.0)
[2023-10-03] MEDS ORDERED: LORazepam 2MG/ML-1ML VIAL IV ONE (17:30)
[2023-10-03] MEDS: MAGNESIUM SULFATE 1GM/100ML 100 ML IV SCH ×2 (17:32→18:37)
[2023-10-03 18:38] LABS: Rapid Influenza A Negative (Negative); Rapid Influenza B Negative (Negative)
[2023-10-03 18:41] LABS: COVID19 ANTIGEN SOFIA FIA POSITIVE (NEGATIVE)
[2023-10-03 18:52] LABS: Rapid Strep A Screen-Throat Negative
[2023-10-03] MEDS: NOREPINEPHRINE 8 MG/250ML KIT 250 ML IV SCH ×2 (20:05→21:56)
[2023-10-03] MEDS: ENOXAPARIN SOD 80 MG/0.8ML SYRINGE SC SCH (21:57)
[2023-10-03 22:05] LABS: Anion Gap 12 (5-15); Carbon Dioxide 16 mmol/L (20-30); Chloride 121 mmol/L (98-107); Potassium 3.5 mmol/L (3.5-5.1); Sodium 149 mmol/L (136-145)
[2023-10-03 22:06] LABS: Calcium 7.4 mg/dL (8.7-10.4)
[2023-10-03 22:11] LABS: BUN/Creatinine Ratio 10.9 (10.0-20.0); Blood Urea Nitrogen 17 mg/dL (9-23); Glucose 93 mg/dL (74-106)
[2023-10-03] MEDS ORDERED: THIAMINE 100mg/ml INJ (200mg/2ml VIAL) IV ONE (22:15)
[2023-10-03] MEDS ORDERED: PANTOPRAZOLE 40 MG/10 ML VIAL INJ IV ONE (22:45)
[2023-10-03] MEDS: CEFEPIME 1GM/ 50ML 50 ML IV SCH (23:59)
[2023-10-04] MEDS ORDERED: DEXTROSE (50%) 50ML SYRG IV ONE ×2 (03:15→08:15)
[2023-10-04 08:00] VITALS: RESP 16; O2SAT 96
[2023-10-04 09:14] LABS: Basophils # (auto) 0.2 10 ^3/uL (0-0.2); Basophils % (auto) 1.3 % (0.0-2.0); Eosinophils % (auto) 14.3 % (0.0-7.0); Hematocrit 36.5 % (41.0-53.0); Hemoglobin 11.8 g/dL (13.5-17.5); Lymphocytes # (auto) 1.2 10 ^3/uL (0.4-5.4); Lymphocytes % (auto) 8.9 % (10.0-50.0); Mean Corpuscular Hemoglobin 32.7 pg (28.0-32.0); Mean Corpuscular Hgb Conc. 32.4 g/dL (32.0-36.0); Monocytes # (auto) 0.6 10 ^3/uL (0-1.3); Monocytes % (auto) 4.3 % (0.0-12.0); Neutrophils # (auto) 9.9 10 ^3/uL (1.6-8.6); Neutrophils % (auto) 71.2 % (37.0-80.0); Nucleated Red Blood Cells % 0.2 %; Red Blood Cells 3.62 10^6/uL (4.5-5.90); Red Cell Distribution Width 14.7 % (11.8-14.3); White Blood Cell 13.9 10^3/uL (4.4-10.8)
[2023-10-04] MEDS ORDERED: ENOXAPARIN SOD 40 MG/0.4 ML SYRINGE SC SCH (10:00)
[2023-10-04] MEDS ORDERED: D5W 5% 1,000 ML IV SCH (10:30)
[2023-10-04] MEDS: CEFEPIME 1GM/ 50ML 50 ML IV SCH ×2 (12:31→21:42)
[2023-10-04] MEDS: PANTOPRAZOLE 40 MG/10 ML VIAL INJ IV SCH (12:31)
[2023-10-04] MEDS: THIAMINE 100mg/ml INJ (200mg/2ml VIAL) IV SCH (12:32)
[2023-10-04] MEDS: ENOXAPARIN SOD 80 MG/0.8ML SYRINGE SC SCH (12:32)
[2023-10-04 13:19] LABS: Alanine Aminotransferase 50 U/L (7-40); Alkaline Phosphatase 69 U/L (46-116); Anion Gap 14 (5-15); Calcium 7.9 mg/dL (8.7-10.4); Carbon Dioxide 15 mmol/L (20-30); Chloride 122 mmol/L (98-107); Glucose 86 mg/dL (74-106); Potassium 3.9 mmol/L (3.5-5.1); Sodium 151 mmol/L (136-145)
[2023-10-04 13:20] LABS: Albumin 2.6 g/dL (3.2-4.8); Aspartate Aminotransferase 69 U/L (13-40); BUN/Creatinine Ratio 7.8 (10.0-20.0); Bilirubin, Total 0.4 mg/dL (0.2-1.0); Blood Urea Nitrogen 18 mg/dL (9-23)
[2023-10-04] MEDS ORDERED: D5W/SOD CHL 0.9%/KCL 40MEQ 1,000 ML IV ONE (14:48)
[2023-10-04] MEDS: POTASSIUM CHLORIDE 40 MEQ in D5W 5% 1,000 ML IV SCH (14:53)
[2023-10-04] MEDS ORDERED: VANCOMYCIN 1GM/200ML 200 ML IV SCH (15:00)
[2023-10-04 16:29] LABS: Anion Gap 13 (5-15); Calcium 8.2 mg/dL (8.7-10.4); Carbon Dioxide 18 mmol/L (20-30); Chloride 123 mmol/L (98-107); Potassium 5.2 mmol/L (3.5-5.1); Sodium 154 mmol/L (136-145)
[2023-10-04 16:34] LABS: Glucose 92 mg/dL (74-106)
[2023-10-04 16:35] LABS: BUN/Creatinine Ratio 8.1 (10.0-20.0); Blood Urea Nitrogen 21 mg/dL (9-23)
[2023-10-04] MEDS: NOREPINEPHRINE 8 MG/250ML KIT 250 ML IV SCH (17:27)
[2023-10-04] MEDS ORDERED: CALCIUM GLUC 1,000mg/50ml-NS 50 ML IV ONE (17:45)
[2023-10-04] MEDS: D5W 5% 1,000 ML IV SCH ×2 (18:20→22:38)
[2023-10-04 19:47] VITALS: PULSE 87; RESP 19; O2SAT 99
[2023-10-04] MEDS ORDERED: MORPHINE SULFATE INJ 2 MG/ml SYRG IV PRN (20:45)
[2023-10-04] MEDS: LORazepam 2MG/ML-1ML VIAL IV PRN (21:29)
[2023-10-04] MEDS: SODIUM CHLOR 0.9% PF (SALINE LOCK) 10ML VIAL/SYR IV SCH (21:42)
[2023-10-04] MEDS: DAKINS QUARTER STR 0.125% (NaHypochlorite) 473 ML TOPICAL SOL TOP SCH (22:00)
[2023-10-04 22:39] LABS: Chloride 127 mmol/L (98-107); Sodium 151 mmol/L (136-145)
[2023-10-04 22:40] LABS: Anion Gap 13 (5-15); Calcium 6.5 mg/dL (8.7-10.4); Carbon Dioxide 11 mmol/L (20-30)
[2023-10-04 22:43] LABS: Potassium 3.2 mmol/L (3.5-5.1)
[2023-10-04 22:45] LABS: Glucose 117 mg/dL (74-106)
[2023-10-04 22:46] LABS: Blood Urea Nitrogen 15 mg/dL (9-23); Magnesium 1.6 mg/dL (1.6-2.6)
[2023-10-05] MEDS: LORazepam 2MG/ML-1ML VIAL IV PRN (02:05)
[2023-10-05] MEDS ORDERED: POTASSIUM CHLORIDE 40 MEQ in D5W 5% 1,000 ML IV SCH ×2 (03:30→08:00)
[2023-10-05] MEDS ORDERED: D5W 5% 1,000 ML IV SCH ×2 (03:30→21:15)
[2023-10-05] MEDS ORDERED: POTASSIUM CHL 20MEQ/100ML 100 ML IV ONE (04:00)
[2023-10-05] MEDS: MAGNESIUM SULFATE 1GM/100ML 100 ML IV SCH ×2 (04:12→05:14)
[2023-10-05 06:13] LABS: Basophils # (auto) 0.1 10 ^3/uL (0-0.2); Eosinophils # (auto) 1.6 10 ^3/uL (0-0.8); Hemoglobin 11.5 g/dL (13.5-17.5); Monocytes # (auto) 0.9 10 ^3/uL (0-1.3); Neutrophils # (auto) 10.1 10 ^3/uL (1.6-8.6); Nucleated Red Blood Cells % 0.1 %
[2023-10-05 06:16] LABS: Basophils % (auto) 0.7 % (0.0-2.0); Eosinophils % (auto) 10.9 % (0.0-7.0); Hematocrit 34.8 % (41.0-53.0); Lymphocytes # (auto) 1.8 10 ^3/uL (0.4-5.4); Lymphocytes % (auto) 12.5 % (10.0-50.0); Mean Corpuscular Hemoglobin 33.5 pg (28.0-32.0); Mean Corpuscular Volume 101.7 fL (80.0-100.0); Neutrophils % (auto) 69.9 % (37.0-80.0); Red Blood Cells 3.42 10^6/uL (4.5-5.90); Red Cell Distribution Width 14.9 % (11.8-14.3); White Blood Cell 14.4 10^3/uL (4.4-10.8)
[2023-10-05] MEDS: D5W 5% 1,000 ML IV SCH ×2 (06:20→13:19)
[2023-10-05 06:31] LABS: Alanine Aminotransferase 68 U/L (7-40); Albumin 2.2 g/dL (3.2-4.8); Alkaline Phosphatase 73 U/L (46-116); Anion Gap 12 (5-15); Aspartate Aminotransferase 130 U/L (13-40); BUN/Creatinine Ratio 9.5 (10.0-20.0); Calcium 7.6 mg/dL (8.7-10.4); Carbon Dioxide 18 mmol/L (20-30); Chloride 120 mmol/L (98-107); Glucose 173 mg/dL (74-106); Magnesium 2.1 mg/dL (1.6-2.6); Potassium 4.3 mmol/L (3.5-5.1); Sodium 150 mmol/L (136-145)
[2023-10-05 06:32] LABS: Bilirubin, Total 0.3 mg/dL (0.2-1.0); Total Protein 4.3 g/dL (5.7-8.2)
[2023-10-05 06:37] LABS: Blood Urea Nitrogen 27 mg/dL (9-23)
[2023-10-05] MEDS: SODIUM CHLOR 0.9% PF (SALINE LOCK) 10ML VIAL/SYR IV SCH (08:46)
[2023-10-05] MEDS: DAKINS QUARTER STR 0.125% (NaHypochlorite) 473 ML TOPICAL SOL TOP SCH (08:46)
[2023-10-05] MEDS: CEFEPIME 1GM/ 50ML 50 ML IV SCH (08:57)
[2023-10-05] MEDS: PANTOPRAZOLE 40 MG/10 ML VIAL INJ IV SCH (08:58)
[2023-10-05] MEDS: THIAMINE 100mg/ml INJ (200mg/2ml VIAL) IV SCH (08:58)
[2023-10-05] MEDS ORDERED: ENOXAPARIN SOD 80 MG/0.8ML SYRINGE SC SCH (10:00)
[2023-10-05] MEDS ORDERED: DEXTROSE (50%) 50ML SYRG IV PRN (10:00)
[2023-10-05 12:00] LABS: Chloride 120 mmol/L (98-107); Potassium 3.7 mmol/L (3.5-5.1); Sodium 147 mmol/L (136-145)
[2023-10-05] MEDS ORDERED: ACCU-CHEK COMFORT CURVE STRIP VI SCH (12:00)
[2023-10-05 12:01] LABS: Anion Gap 10 (5-15); Carbon Dioxide 17 mmol/L (20-30)
[2023-10-05 12:02] LABS: Calcium 7.9 mg/dL (8.5-10.1)
[2023-10-05 12:06] LABS: BUN/Creatinine Ratio 7.7 (10.0-20.0); Blood Urea Nitrogen 22 mg/dL (9-23); Glucose 149 mg/dL (74-106)
[2023-10-05 12:37] LABS: Magnesium 2.2 mg/dL (1.6-2.6)
[2023-10-05] MEDS: NOREPINEPHRINE 8 MG/250ML KIT 250 ML IV SCH (13:19)
[2023-10-05 14:00] VITALS: TEMP 96
[2023-10-05] MEDS ORDERED: LINEZOLID 600MG/300ML 300 ML IV SCH (15:00)
[2023-10-05 17:00] VITALS: BP 104/56; PULSE 70; RESP 18; O2SAT 100
[2023-10-05] MEDS ORDERED: CEFEPIME 1GM/ 50ML 50 ML IV SCH (22:00)
== END 2023-10-05 18:10 | disposition hospice, home (50) | DRG 871 ==
LOC: EDBD 08:38 → ER 08:38 → TELE 13:34
PROVIDERS: ADMIT Internal Medicine; ATTEND Internal Medicine
PROC: 02HV33Z Insertion of Infusion Device into Superior Vena Cava, Percutaneous Approach (ICD-10-PCS; principal; 2023-10-04)
PROC: B548ZZA Ultrasonography of Superior Vena Cava, Guidance (ICD-10-PCS; 2023-10-04)
DX: A41.9 Sepsis, unspecified organism (principal); E43 Unspecified severe protein-calorie malnutrition; G93.41 Metabolic encephalopathy; U07.1 COVID-19; J15.69 Pneumonia due to other Gram-negative bacteria; R65.21 Severe sepsis with septic shock; E87.0 Hyperosmolality and hypernatremia; N17.9 Acute kidney failure, unspecified; N39.0 Urinary tract infection, site not specified; E87.1 Hypo-osmolality and hyponatremia; Z66 Do not resuscitate; L26 Exfoliative dermatitis; E86.1 Hypovolemia; L40.9 Psoriasis, unspecified; Z68.27 Body mass index [BMI] 27.0-27.9, adult; M10.9 Gout, unspecified; I48.91 Unspecified atrial fibrillation; E16.2 Hypoglycemia, unspecified; E87.6 Hypokalemia; N18.9 Chronic kidney disease, unspecified; D69.6 Thrombocytopenia, unspecified; D53.9 Nutritional anemia, unspecified; E87.5 Hyperkalemia; L89.92 Pressure ulcer of unspecified site, stage 2
CPT/HCPCS: 36415; 36569; 36600; 70450; 71045; 71250; 74176; 80048; 80053; 80202; 80320; 81001; 82140; 82533; 82550; 82805; 82962; 83605; 83615; 83690; 83735; 83880; 83930; 83935; 84484; 85007; 85025; 85027; 85610; 85730; 86141; 87040; 87070; 87086; 87426; 87804; 87880; 93005; 93306; 96365; 96375; C9113; G0378; J2543; J3480